=== PATIENT | male | born 1995 | race American Indian/Alaskan Native ===

== ENCOUNTER 2021-06-20 21:07 | Emergency (ER) | payer OTHER ==
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
[2021-06-20 21:58] VITALS: BP 124/79
[2021-06-20] MEDS ORDERED: IBUPROFEN 800 MG TAB PO ONE (22:00)
== END 2021-06-20 22:38 ==
LOC: ED 21:07
DX: S46.811A Strain of other muscles, fascia and tendons at shoulder and upper arm level, right arm, initial encounter (principal); Z79.899 Other long term (current) drug therapy; V49.49XA Driver injured in collision with other motor vehicles in traffic accident, initial encounter; Y92.410 Unspecified street and highway as the place of occurrence of the external cause; Y93.89 Activity, other specified; Y99.8 Other external cause status